=== PATIENT | female | born 1995 | race Caucasian/White ===

== ENCOUNTER 2016-07-22 22:12 | Inpatient (IN) | payer OTHER ==
[~2016-07-22] VITALS: Ht 160 cm; Wt 103.4 kg
[~2016-07-22 22:12] MED LIST: AMOXICILLIN500 MG PO; LICE TREATMENT118 ML TP; NAPROXEN500 MG PO
[2016-07-22 22:34] LABS: HEMATOCRIT 47.2 % (36.0-46.0); MCH 28.2 PG (29.0-34.0); MCHC 33.1 G/DL (30.0-36.0); MCV 85.4 FL (83-99); MEAN PLAT.VOLUME 9.8 uM^3 (9.5-12.4); PLATELET COUNT 305 K/uL (156-360); RBC DIS.WIDTH-CV 13.7 % (11.8-14.6); RBC DIS.WIDTH-SD 42.4 % (39-53); RED BLOOD COUNT 5.53 M/uL (3.80-5.20); WHITE BLOOD COUNT 12.9 K/uL (4.1-10.2)
[2016-07-22 22:44] LABS: CHLORIDE 106 mEq/L (99-109); POTASSIUM 3.9 mEq/L (3.7-5.4); SODIUM 140 mEq/L (136-147)
[2016-07-22 22:46] LABS: GLUCOSE 98 mg/dL (70-99)
[2016-07-22 22:47] LABS: ANION GAP 11 MEQ/L (2-14)
[2016-07-22 22:49] LABS: SERUM ETHYL ALCOHOL < 10 mg/dL
[2016-07-22 22:50] LABS: GFR ESTIMATE (CALCULATED) > 59 mL/min/; UREA NITROGEN (BUN) 8 mg/dL (9-23)
[2016-07-22 22:58] LABS: QUANTITATIVE HCG < 4.0 MIU/ML
[2016-07-23 04:56] VITALS: BP 127/68
[2016-07-23 07:45] VITALS: BP 116/65
[2016-07-23 15:15] VITALS: BP 124/64
[2016-07-24 09:16] VITALS: BP 95/54
[2016-07-24 15:31] VITALS: BP 106/67
[2016-07-25 08:52] VITALS: BP 88/52
[2016-07-25 13:07] VITALS: BP 126/73
[2016-07-25 15:30] VITALS: BP 114/73
[2016-07-26 08:09] VITALS: BP 104/55
[2016-07-26 16:07] VITALS: BP 116/75
[2016-07-27 07:37] VITALS: BP 91/48
[2016-07-27 15:25] VITALS: BP 115/63
[2016-07-28 08:06] VITALS: BP 98/48
[2016-07-28] MEDS ORDERED: DEPAKOTE ER500 MG PO (09:26)
[2016-07-28] MEDS ORDERED: FLUOXETINE HCL10 MG PO (09:27)
== END 2016-07-28 10:45 | disposition home or self-care (01) | DRG 885 ==
LOC: EME 22:12 → 1WEST 07-23 00:44 → EDOF 07-23 00:44 → 1WEST 07-23 02:05
PROVIDERS: Emergency Medicine
DX: F31.81 Bipolar II disorder (principal); R45.851 Suicidal ideations; F31.9 Bipolar disorder, unspecified; F41.9 Anxiety disorder, unspecified; F43.10 Post-traumatic stress disorder, unspecified; F60.9 Personality disorder, unspecified; Z81.8 Family history of other mental and behavioral disorders; E66.01 Morbid (severe) obesity due to excess calories; Z68.41 Body mass index [BMI] 40.0-44.9, adult
CPT/HCPCS: 80048; 80164; 84702; 85027; 90837; 97150 GO; 99281; 99285; G0480

== ENCOUNTER 2016-12-09 05:03 | Emergency (ER) | payer OTHER ==
[~2016-12-09] VITALS: Ht 160 cm; Wt 99.7 kg
[~2016-12-09 05:03] MED LIST changes: +DEPAKOTE ER500 MG PO; +FLUOXETINE HCL10 MG PO
[2016-12-09 05:29] LABS: ADD MIUA? YES; BILIRUBIN NEGATIVE; BLOOD MODERATE; COLOR AMBER ((YELLOW)); GLUCOSE (STRIP) NEGATIVE; KETONES NEGATIVE; LEUKOCYTES SMALL; NITRITE NEGATIVE; PROTEIN (STRIP) 30
[2016-12-09 05:36] LABS: HEMATOCRIT 44.5 % (36.0-46.0); MCHC 33.3 G/DL (30.0-36.0); MCV 87.3 FL (83-99); MEAN PLAT.VOLUME 10.2 uM^3 (9.5-12.4); PLATELET COUNT 278 K/uL (156-360); RBC DIS.WIDTH-CV 12.9 % (11.8-14.6); RBC DIS.WIDTH-SD 41.1 % (39-53); WHITE BLOOD COUNT 9.2 K/uL (4.1-10.2)
[2016-12-09 05:44] LABS: CHLORIDE 106 mEq/L (99-109); POTASSIUM 3.3 mEq/L (3.7-5.4); SODIUM 141 mEq/L (136-147)
[2016-12-09 05:47] LABS: GLUCOSE 109 mg/dL (70-99)
[2016-12-09 05:48] LABS: ANION GAP 10 MEQ/L (2-14)
[2016-12-09 05:49] LABS: TOTAL BILIRUBIN 0.8 mg/dL (0.0-1.0)
[2016-12-09 05:50] LABS: ALKALINE PHOSPHATASE 65 IU/L (3-129); GFR ESTIMATE (CALCULATED) > 59 mL/min/
[2016-12-09 05:51] LABS: UREA NITROGEN (BUN) 8 mg/dL (9-23)
[2016-12-09 05:53] LABS: CREATINE KINASE 51 IU/L (1-294); TOTAL CK 51 IU/L (1-294)
[2016-12-09 05:56] LABS: BACTERIA 3+ /HPF; CASTS NONE SEEN /LPF; CRYSTALS NONE SEEN; EPITHELIAL CELLS 2+ /HPF; MUCUS 2+ /LPF; RED BLOOD CELLS 0-5 /HPF (0-5); UCUL ADDED? YES; WHITE BLOOD CELLS 20-30 /HPF (0-5)
[2016-12-09 05:59] LABS: QUANTITATIVE HCG < 4.0 MIU/ML
[2016-12-09 06:00] LABS: CK-MB 0.5 ng/mL (0.0-4.9)
[2016-12-09] MEDS ORDERED: DEPAKOTE ER500 MG PO (06:37)
[2016-12-09] MEDS ORDERED: BACTRIM,SEPT1 TABLET PO (06:38)
[2016-12-09 06:56] VITALS: BP 102/57
== END 2016-12-09 07:02 | disposition home or self-care (01) ==
LOC: EME 05:03
PROVIDERS: Emergency Medicine
DX: N39.0 Urinary tract infection, site not specified (principal); F31.9 Bipolar disorder, unspecified; T42.6X6A Underdosing of other antiepileptic and sedative-hypnotic drugs, initial encounter; Z91.128 Patient's intentional underdosing of medication regimen for other reason; Z76.0 Encounter for issue of repeat prescription
CPT/HCPCS: 80053; 80164; 81003; 82550; 82553; 84702; 85027; 87086; 99281; 99284

== ENCOUNTER 2017-04-02 17:41 | Emergency (ER) | payer OTHER ==
[~2017-04-02] VITALS: Ht 160 cm; Wt 106.5 kg
[~2017-04-02 17:41] MED LIST changes: +BACTRIM,SEPT1 TABLET PO
[2017-04-02] MEDS ORDERED: FLEXERIL10 MG PO (19:10)
[2017-04-02] MEDS ORDERED: MOTRIN800 MG PO (19:10)
[2017-04-02 19:32] VITALS: BP 121/79
== END 2017-04-02 19:32 | disposition home or self-care (01) ==
LOC: EXP 17:41 → EME 17:41 → EXP 19:32
DX: S16.1XXA Strain of muscle, fascia and tendon at neck level, initial encounter (principal); F32.9 Major depressive disorder, single episode, unspecified; Y04.2XXA Assault by strike against or bumped into by another person, initial encounter
CPT/HCPCS: 99281; 99283

== ENCOUNTER 2017-04-09 19:26 | Emergency (ER) | payer OTHER ==
[~2017-04-09] VITALS: Ht 160 cm; Wt 107.1 kg
[~2017-04-09 19:26] MED LIST changes: +FLEXERIL10 MG PO; +MOTRIN800 MG PO
[2017-04-09 19:32] VITALS: BP 124/86
[2017-04-09] MEDS ORDERED: ZOFRAN4 MG PO (22:22)
== END 2017-04-09 22:44 | disposition home or self-care (01) ==
LOC: EME 19:26
DX: J02.8 Acute pharyngitis due to other specified organisms (principal); B97.89 Other viral agents as the cause of diseases classified elsewhere
CPT/HCPCS: 87502; 87651 90; 99281; 99284

== ENCOUNTER 2017-06-06 18:46 | Emergency (ER) | payer OTHER ==
[~2017-06-06] VITALS: Ht 160 cm; Wt 108.5 kg
[~2017-06-06 18:46] MED LIST changes: +ZOFRAN4 MG PO
[2017-06-06 19:58] LABS: AMPHETAMINE NEGATIVE (500 ng/mL); BARBITURATES NEGATIVE (200 ng/mL); BENZODIAZEPINES NEGATIVE (150 ng/mL); BUPRENORPHINE NEGATIVE (10 ng/mL); COCAINE NEGATIVE (150 ng/mL); METHADONE NEGATIVE (200 ng/mL); METHAMPHETAMINE NEGATIVE (500 ng/mL); OPIATES (MORPHINE) NEGATIVE (100 ng/mL); OXYCODONE NEGATIVE (100 ng/mL); PHENCYCLIDINE NEGATIVE (25 ng/mL); PROPOXYPHENE NEGATIVE (300 ng/mL); THC CANNABINOIDS NEGATIVE (50 ng/mL); TRICYCLIC ANTIDEPRESSANTS NEGATIVE (300 ng/mL)
[2017-06-06 20:06] LABS: HEMATOCRIT 47.1 % (36.0-46.0); HEMOGLOBIN 15.7 G/DL (11.9-15.5); MCH 29.2 PG (29.0-34.0); MCHC 33.3 G/DL (30.0-36.0); MCV 87.5 FL (83-99); PLATELET COUNT 254 K/uL (156-360); RBC DIS.WIDTH-SD 45.1 % (39-53); RED BLOOD COUNT 5.38 M/uL (3.80-5.20); WHITE BLOOD COUNT 14.5 K/uL (4.1-10.2)
[2017-06-06 20:14] LABS: CHLORIDE 103 mEq/L (99-109); POTASSIUM 3.5 mEq/L (3.7-5.4); SODIUM 139 mEq/L (136-147)
[2017-06-06 20:16] LABS: GLUCOSE 85 mg/dL (70-99)
[2017-06-06 20:19] LABS: SERUM ETHYL ALCOHOL < 10 mg/dL
[2017-06-06 20:20] LABS: CREATININE 0.7 mg/dL (0.6-1.3); GFR ESTIMATE (CALCULATED) > 59 mL/min/
[2017-06-06 20:21] LABS: UREA NITROGEN (BUN) 10 mg/dL (9-23)
[2017-06-06 20:28] LABS: QUANTITATIVE HCG < 4.0 MIU/ML
[2017-06-06 20:36] VITALS: BP 150/93
== END 2017-06-06 20:53 | disposition home or self-care (01) ==
LOC: EME 18:46
PROVIDERS: Emergency Medicine
DX: F32.9 Major depressive disorder, single episode, unspecified (principal)
CPT/HCPCS: 80048; 84702; 85027; 90839; 99281; 99284; G0480

== ENCOUNTER 2017-09-29 20:28 | Emergency (ER) | payer OTHER ==
[~2017-09-29] VITALS: Ht 160 cm; Wt 100.0 kg
[2017-09-29 21:03] LABS: HEMATOCRIT 43.6 % (36.0-46.0); HEMOGLOBIN 14.7 G/DL (11.9-15.5); MCH 29.3 PG (29.0-34.0); MCHC 33.7 G/DL (30.0-36.0); MCV 86.9 FL (83-99); PLATELET COUNT 317 K/uL (156-360); RBC DIS.WIDTH-SD 44.6 % (39-53); RED BLOOD COUNT 5.02 M/uL (3.80-5.20); WHITE BLOOD COUNT 11.2 K/uL (4.1-10.2)
[2017-09-29 21:11] LABS: CHLORIDE 106 mEq/L (99-109); POTASSIUM 3.6 mEq/L (3.7-5.4); SODIUM 140 mEq/L (136-147)
[2017-09-29 21:13] LABS: GLUCOSE 101 mg/dL (70-99)
[2017-09-29 21:16] LABS: SERUM ETHYL ALCOHOL < 10 mg/dL
[2017-09-29 21:17] LABS: CREATININE 0.8 mg/dL (0.6-1.3); GFR ESTIMATE (CALCULATED) > 59 mL/min/
[2017-09-29 21:18] LABS: UREA NITROGEN (BUN) 14 mg/dL (9-23)
[2017-09-29 22:08] LABS: AMPHETAMINE NEGATIVE (500 ng/mL); BARBITURATES NEGATIVE (200 ng/mL); BENZODIAZEPINES NEGATIVE (150 ng/mL); BUPRENORPHINE NEGATIVE (10 ng/mL); COCAINE NEGATIVE (150 ng/mL); METHADONE NEGATIVE (200 ng/mL); METHAMPHETAMINE NEGATIVE (500 ng/mL); OPIATES (MORPHINE) NEGATIVE (100 ng/mL); OXYCODONE NEGATIVE (100 ng/mL); PHENCYCLIDINE NEGATIVE (25 ng/mL); PROPOXYPHENE NEGATIVE (300 ng/mL); THC CANNABINOIDS NEGATIVE (50 ng/mL); TRICYCLIC ANTIDEPRESSANTS NEGATIVE (300 ng/mL)
[2017-09-30 02:45] VITALS: BP 126/68
== END 2017-09-30 02:47 | disposition home or self-care (01) ==
LOC: EME 20:28
DX: F43.0 Acute stress reaction (principal); F31.81 Bipolar II disorder
CPT/HCPCS: 80048; 85027; 90837; 99281; 99285; G0480

== ENCOUNTER 2017-10-06 17:17 | Emergency (ER) | payer OTHER ==
[~2017-10-06] VITALS: Ht 160 cm; Wt 100.0 kg
[2017-10-06 18:10] VITALS: BP 106/55
[2017-10-06 18:29] LABS: HEMATOCRIT 43.4 % (36.0-46.0); HEMOGLOBIN 14.8 G/DL (11.9-15.5); MCH 29.3 PG (29.0-34.0); MCHC 34.1 G/DL (30.0-36.0); MCV 85.9 FL (83-99); PLATELET COUNT 301 K/uL (156-360); RBC DIS.WIDTH-CV 13.8 % (11.8-14.6); RBC DIS.WIDTH-SD 43.7 % (39-53); RED BLOOD COUNT 5.05 M/uL (3.80-5.20); WHITE BLOOD COUNT 12.3 K/uL (4.1-10.2)
[2017-10-06 18:41] LABS: CHLORIDE 109 mEq/L (99-109); POTASSIUM 3.5 mEq/L (3.7-5.4); SODIUM 142 mEq/L (136-147)
[2017-10-06 18:43] LABS: GLUCOSE 89 mg/dL (70-99)
[2017-10-06 18:46] LABS: CREATININE 0.9 mg/dL (0.6-1.3); GFR ESTIMATE (CALCULATED) > 59 mL/min/; SERUM ETHYL ALCOHOL < 10 mg/dL
[2017-10-06 18:47] LABS: UREA NITROGEN (BUN) 13 mg/dL (9-23)
[2017-10-06 18:56] LABS: QUANTITATIVE HCG < 4.0 MIU/ML
== END 2017-10-06 19:23 | disposition home or self-care (01) ==
LOC: EME 17:17
PROVIDERS: Emergency Medicine
DX: F32.9 Major depressive disorder, single episode, unspecified (principal); F31.81 Bipolar II disorder
CPT/HCPCS: 80048; 84702; 85027; 90837; 99281; 99283; G0480

== ENCOUNTER 2017-10-08 00:27 | Inpatient (IN) | payer OTHER ==
[~2017-10-08] VITALS: Ht 160 cm; Wt 107.1 kg
[2017-10-08 00:51] LABS: AMPHETAMINE NEGATIVE (500 ng/mL); BARBITURATES NEGATIVE (200 ng/mL); BENZODIAZEPINES NEGATIVE (150 ng/mL); BUPRENORPHINE NEGATIVE (10 ng/mL); COCAINE NEGATIVE (150 ng/mL); METHADONE NEGATIVE (200 ng/mL); METHAMPHETAMINE NEGATIVE (500 ng/mL); OPIATES (MORPHINE) NEGATIVE (100 ng/mL); OXYCODONE NEGATIVE (100 ng/mL); PHENCYCLIDINE NEGATIVE (25 ng/mL); PROPOXYPHENE NEGATIVE (300 ng/mL); THC CANNABINOIDS NEGATIVE (50 ng/mL); TRICYCLIC ANTIDEPRESSANTS NEGATIVE (300 ng/mL)
[2017-10-08 01:18] LABS: HEMATOCRIT 42.7 % (36.0-46.0); HEMOGLOBIN 14.4 G/DL (11.9-15.5); MCH 29.2 PG (29.0-34.0); MCHC 33.7 G/DL (30.0-36.0); MCV 86.6 FL (83-99); PLATELET COUNT 289 K/uL (156-360); RBC DIS.WIDTH-CV 13.8 % (11.8-14.6); RBC DIS.WIDTH-SD 44.2 % (39-53); RED BLOOD COUNT 4.93 M/uL (3.80-5.20); WHITE BLOOD COUNT 10.7 K/uL (4.1-10.2)
[2017-10-08 01:29] LABS: CHLORIDE 106 mEq/L (99-109); POTASSIUM 3.5 mEq/L (3.7-5.4); SODIUM 141 mEq/L (136-147)
[2017-10-08 01:34] LABS: SERUM ETHYL ALCOHOL < 10 mg/dL
[2017-10-08 01:35] LABS: CREATININE 0.8 mg/dL (0.6-1.3); GFR ESTIMATE (CALCULATED) > 59 mL/min/
[2017-10-08 01:36] LABS: GLUCOSE 120 mg/dL (70-99); UREA NITROGEN (BUN) 10 mg/dL (9-23)
[2017-10-08 05:21] LABS: ALBUMIN 4.1 g/dL (3.2-4.8)
[2017-10-08 05:24] LABS: TOTAL PROTEIN 6.9 g/dL (6.4-8.3)
[2017-10-08 05:26] LABS: TOTAL BILIRUBIN 0.6 mg/dL (0.0-1.0)
[2017-10-08 05:27] LABS: ALKALINE PHOSPHATASE 77 IU/L (3-129)
[2017-10-08 05:29] LABS: AST (GOT) 18 IU/L (2-34); DIRECT BILIRUBIN 0.3 mg/dL (0.0-0.3)
[2017-10-08 05:30] LABS: ALT (GPT) 28 IU/L (3-49); LIPASE 26 U/L (1.0-51.0)
[2017-10-08 06:03] LABS: APPEARANCE TURBID ((CLEAR)); BILIRUBIN SMALL; BLOOD MODERATE; COLOR YELLOW ((YELLOW)); GLUCOSE (STRIP) NEGATIVE; KETONES 5; LEUKOCYTES NEGATIVE; NITRITE NEGATIVE; PROTEIN (STRIP) 100; SPECIFIC GRAVITY 1.035 (1.000-1.030)
[2017-10-08 06:07] LABS: BACTERIA NONE SEEN /HPF; EPITHELIAL CELLS NONE SEEN /HPF; MUCUS NONE SEEN /LPF; RED BLOOD CELLS 0-5 /HPF (0-5); UCUL ADDED? NO; WHITE BLOOD CELLS NONE SEEN /HPF (0-5)
[2017-10-08] MEDS ORDERED: BUPROPION HCL75 MG PO (12:15)
[2017-10-08] MEDS ORDERED: VYVANSE20 MG PO (12:17)
[2017-10-08 15:52] VITALS: BP 111/78
[2017-10-09 08:07] VITALS: BP 97/55
[2017-10-09 16:53] VITALS: BP 117/57
[2017-10-11 08:49] VITALS: BP 104/56
[2017-10-11 15:59] VITALS: BP 105/56
[2017-10-12 07:41] VITALS: BP 105/59
[2017-10-12] MEDS ORDERED: BUPROPION HCL75 MG PO (10:43)
[2017-10-12] MEDS ORDERED: BENZTROPINE ME0.5 MG PO (10:43)
[2017-10-12] MEDS ORDERED: DEPAKOTE500 MG PO (10:43)
== END 2017-10-12 11:44 | disposition home or self-care (01) | DRG 885 ==
LOC: EME 00:27 → EDOF 13:04 → 1WEST 13:04 → ENRESERV 15:43 → 1WEST 15:44
PROVIDERS: Emergency Medicine
DX: F31.81 Bipolar II disorder (principal); R45.851 Suicidal ideations; E66.01 Morbid (severe) obesity due to excess calories; B85.2 Pediculosis, unspecified; F60.3 Borderline personality disorder; F20.9 Schizophrenia, unspecified; F90.9 Attention-deficit hyperactivity disorder, unspecified type; Z59.0 Homelessness; Z68.41 Body mass index [BMI] 40.0-44.9, adult
CPT/HCPCS: 80048; 80076; 81003; 83690; 84702; 85027; 90837; 97150 GO; 99281; 99285; G0480